=== PATIENT | female | born 1965 | race Two or more races ===

== ENCOUNTER 2016-03-25 18:42 | Emergency (ER) | payer SELFPAY ==
[~2016-03-25] VITALS: Ht 157.5 cm; Wt 86.2 kg
[2016-03-25 18:55] VITALS: BP 132/86
== END 2016-03-26 04:00 | disposition left against medical advice (07) ==
LOC: ER 18:45
DX: M25.562 Pain in left knee (principal); W01.0XXA Fall on same level from slipping, tripping and stumbling without subsequent striking against object, initial encounter; Y93.89 Activity, other specified; Y99.8 Other external cause status; Y92.89 Other specified places as the place of occurrence of the external cause
CPT/HCPCS: 73562